=== PATIENT | female | born 1975 | race Hispanic/Latino ===

== ENCOUNTER 2019-05-28 10:31 | Emergency (ER) | payer SELFPAY ==
[~2019-05-28] VITALS: Ht 154.9 cm; Wt 58.5 kg
--- OUTSIDE RECORDS SUMMARY | 2019-05-28 10:34 | XMS REPORT ---
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 Allergies, Adverse Reactions, Alerts Allergy Name Allergy Type Status Severity Reaction(s) Onset Date Inactive Date Treating Clinician Comments No Known Allergies DA Active U 2018-07-14 00:00:00 Medications This patient has no known medications.
[2019-05-28] MEDS ORDERED: DEXAMETHASONE SOD PHOS 10 MG/1 ML VIAL IM ONE (10:55)
--- NOTE | 2019-05-28 11:25 | Diagnostic Imaging Report ---
CT BRAIN WO HISTORY: Left facial numbness, facial droop COMPARISON: None. TECHNIQUE: Noncontrast axial scans were obtained from skull base to the vertex. Coronal and sagittal reconstructions obtained from the axial data. One or more of the following dose reduction techniques were used: Automated exposure control, adjustment of the mA and/or kV according to patient size, and/or utilization of iterative reconstruction technique. DISCUSSION: Scalp/Skull: Unremarkable. Brain sulci: Appropriate for patient's age. Ventricles: Normal in size and configuration. No hydrocephalus. Extra-axial spaces: No masses or fluid collections. Parenchyma: No abnormal densities. No mass, hemorrhage, or large vascular territory acute infarct. Dural sinuses: No abnormal densities. Sellar/Suprasellar region: Intact. Skull base: Intact. Incidental findings: None. IMPRESSION: No intracranial abnormalities. Signed by: Dr. Vickey Blackwell M.D. on 05/28/2019 11:21 AM
--- NOTE | 2019-05-28 11:42 | NUR ---
Dr. Renee and Hunter, JOSEP at bedside updating pt on plan of care and results of CT Brain, pt verbalizes understanding on disposition to d/c and follow up care.
[2019-05-28 11:48] VITALS: BP 126/89
--- NOTE | 2019-05-28 11:50 | NUR ---
Pt d/c at this time, unable to print all of d/c paperwork, pt verbalizes understanding of d/c and dispo; given [employer] clinical martell education.
== END 2019-05-28 12:10 | disposition home or self-care (01) ==
LOC: ER 10:31
DX: G51.0 Bell's palsy (principal)
CPT/HCPCS: 70450; 99283; J1100